=== PATIENT | female | born 1950 | race Caucasian/White ===

== ENCOUNTER 2017-08-23 16:19 | Inpatient (IN) | payer MEDICARE ==
[2017-08-23] MEDS ORDERED: DURAGESIC1 PATCH .2 TRANSDERM (17:00)
[2017-08-23] MEDS ORDERED: ULTRAM50 MG PO (17:01)
[2017-08-23] MEDS ORDERED: NORCO 7.5/325 T1 TA1 PO (17:02)
[2017-08-23] MEDS ORDERED: BACLOFEN10 MG PO (17:03)
[2017-08-23] MEDS ORDERED: COLACE100 MG PO (17:03)
[2017-08-23] MEDS ORDERED: MIRALAX17 GM PO (17:04)
[2017-08-23] MEDS ORDERED: PHENERGAN50 MG RC (17:05)
[2017-08-23] MEDS ORDERED: SYMBICORT 80-10.2 GM INH (17:06)
[2017-08-23] MEDS ORDERED: TEGRETOL200 MG PO (17:06)
[2017-08-23] MEDS ORDERED: OMEPRAZOLE20 M1 PO (17:06)
[2017-08-23] MEDS ORDERED: LYRICA100 MG PO (17:07)
[2017-08-23] MEDS ORDERED: PROZAC20 MG PO (17:08)
[2017-08-23] MEDS ORDERED: BENADRYL25 MG PO (17:12)
[2017-08-23] MEDS ORDERED: VENTOLIN HFA18 GM INH (17:21)
[2017-08-23] MEDS ORDERED: SPIRIVA18 MCG INH (17:22)
[2017-08-23] MEDS ORDERED: PREMARIN0.625 MG PO (17:23)
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
[2017-08-23 18:00] VITALS: BP 140/96; BMI 19.5
[2017-08-23 18:27] LABS: APPEARANCE CLEAR (CLEAR); COLOR YELLOW (YELLOW)
[2017-08-23 18:28] LABS: BILIRUBIN NEGATIVE (NEGATIVE); GLUCOSE NEGATIVE (NEGATIVE); KETONE NEGATIVE (NEGATIVE); NITRITE NEGATIVE (NEGATIVE); PROTEIN NEGATIVE (NEGATIVE); UROBILINOGEN NORMAL (NORMAL)
[2017-08-23 18:29] LABS: BACTERIA MODERATE /hpf (NONE SEEN); EPITHELIAL CELLS 0-5 /hpf (0-5); RED CELLS - URINE 0-5 /hpf (0-5)
--- NOTE | 2017-08-23 19:28 | NUR ---
PATIENT DOES HAVE NOTED SCARS ON CERVICAL AREA AND LUMBAR AREA AND LEFT KNEE.
[2017-08-23 20:01] VITALS: BP 92/64
--- NOTE | 2017-08-23 20:15 | NUR ---
RECEIVED IN DAYROOM. MOVING ABOUT IN WHEELCHAIR. O2@3L VIA NC. SOCIALIZING WITH STAFF AND PEERS. CALM AND COOPERATIVE WITH CARE AND ASSESSMENTS. NO SIGNS OF HALLUCINATIONS. ENCOURAGE TO EXPRESS NEEDS. RESTING IN WHEELCHAIR AT NURSES STATION AT THIS TIME. CONTINUE PLAN OF CARE
[2017-08-24 06:52] LABS: HEMOGLOBIN A1C 6.1 % (4.8-6.0)
[2017-08-24 07:11] LABS: CHOL - HDL RATIO 2.1 ratio (2.3-4.1); THYROID STIMULATING HORMONE 5.05 uIU/mL (0.36-3.74)
[2017-08-24 08:00] VITALS: BP 121/71
--- NOTE | 2017-08-24 09:00 | NUR ---
Received pt in dining room, alert, calm, cooperative, grandiose delusions, talks frequently. Meds admin per orders. Group therapy provided. No s/s adverse reaction to meds. Cont POC including meds and group therpay as directed.
[2017-08-24 14:25] VITALS: BMI 19.4
--- NOTE | 2017-08-24 15:26 | NUR ---
pt attempted to transfer from the wheelchair and it slid out from under her. pt fell on her bottom. pt denies any pain or discomfort. no injury noted on assessment. pt's sister notified of fall. dr. church called and no new orders gotten. neurochecks started. vss.
[2017-08-24 20:51] VITALS: BP 107/58
--- NOTE | 2017-08-24 21:52 | NUR ---
RECEIVED IN BEDROOM. LAYING IN BED WITH EYES OPEN. SOMATIC COMPLAINTS. ATTENTION SEEKING AT TIMES. CALM AND COOPERATIVE WITH CARE AND ASSESSMENT. NO SIGNS OF HALLULCINATIONS. VERY DELUSIONAL. PARANOID AT TIMES. REDIRECT AND REORIENT NEEDED. RESTING IN BED WITH EYES CLOSED AT THIS TIME. CONTINUE PLAN OF CARE.
--- NOTE | 2017-08-25 04:06 | NUR ---
Given Tramadol for complaints of headache and left thigh pain, rated as 8/10 in severity. Will monitor for effectiveness.
[2017-08-25 06:16] LABS: VITAMIN D 25 HYDROXY 41.5 ng/mL (30.0-100.0)
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
[2017-08-25 07:24] LABS: RAPID PLASMA REAGIN Non Reactive (Non Reactive)
[2017-08-25 08:00] VITALS: BP 115/53
[2017-08-25 09:18] LABS: FOLATE (FOLIC ACID) - SERUM 12.2 ng/mL (>3.0)
--- NOTE | 2017-08-25 13:28 | PSY ---
PATIENT NAME:GUILLE HASSAN MEDICAL RECORD: [id number] : 52 LOCATION:[id number] ADMISSION DATE: 08/23/17 ACCOUNT: [id number] PSYCHIATRIC EVALUATION DATE OF EVALUATION: 08/24/17 IDENTIFYING DATA: The patient is 66 years old and she is admitted to the hospital on a voluntary basis. CHIEF COMPLAINT: Confusion. HISTORY OF PRESENT ILLNESS: The patient was originally admitted to [facility] because of some hallucinations, confusion, and mental status changes. She was cleared by them both medically and neurologically and they made a referral to the behavioral unit here at [facility]. The patient was admitted for the mental status change and the hallucinations. Upon interview, the patient tells me that she is angry and upset because I have discontinued some of her medications. She tells me that she has been on a variety of pain medicines, antinausea medicines, and muscle relaxants for years. In fact, she says 22 years, which seems like quite a long time ago, but that is what she says. She is not really at all cooperative with my interview because I will not agree to give her this combination of medicines that probably caused the symptoms that brought her here. She is clear when she talks to me, and in fact, was quietly reading a book in the dayroom. She says she loves to read. She has not had any difficulty in maintaining her concentration and tells me a little bit about the book she is reading while there is a great deal of commotion and activity going on in the dayroom. She denies having any hallucinations right now. I did stop some of her medications last night when I reviewed them after she was admitted because it was clearly inappropriate. She says that her medicines are being prescribed by the doctors at the [facility] and she wants me to transfer her there at 4:30 in the afternoon. I do not have the capacity to initiate that at this time. She is not happy and does not seem to understand that [facility] from [facility], and at the same time, is not happy that I am not willing to start making phone [facility] to [facility] this afternoon. I will discuss the situation with the treatment team. She denies that she would seek to harm herself or others. She denies psychotic symptoms. PAST MEDICAL HISTORY: Significant for COPD; chronic constipation, probably secondary to her narcotic use; and urinary tract infection. She also tells me that she fractured her left knee in January and that is why she is in need of narcotics here at the end of July. In addition to that, she tells me that she has had multiple back surgeries. PAST PSYCHIATRIC HISTORY: Significant for depression. She denies substance abuse history. She does say that, in the past, she did drink more than she should, but stops short of saying she is an alcoholic. SOCIAL HISTORY: The patient is single. She is a retired [employer] . She says she has no legal entanglements. MENTAL STATUS EXAMINATION: The patient is awake; alert; and oriented to person, place, time, and situation. Her mood is angry. Her affect is constricted. Thought processes are goal directed. Memory, concentration, and abstraction abilities appear to be intact, but they were not formally tested because the patient became angry for reasons described above. She does not have any thoughts of harming herself or others and clearly has no psychotic symptoms right now and denies that she is having any psychotic symptoms. ASSETS: Stable living environment. LIABILITIES: Limited insight. ALLERGIES: PENICILLIN, VANCOMYCIN, REGLAN, AND DEMEROL. CURRENT MEDICATIONS: Include fentanyl, Ultram, baclofen, Colace, MiraLAX, Symbicort, Tegretol, Lyrica, Prozac, Ventolin, Spiriva, estrogen, [place], Phenergan, and Benadryl. FAMILY HISTORY: Negative for psychiatric disease by her report. ASSESSMENT: AXIS I: Delirium, probably secondary to multiple medications and multiple medication interactions. Rule out opiate addiction. AXIS II: Deferred. AXIS III: COPD, gastroesophageal reflux disease, chronic constipation, urinary tract infection, and impaired mobility. AXIS IV: Mild stressors. AXIS V: Global assessment of functioning is 30. PLAN: At this time, the patient is admitted to the hospital secondary to delirious symptoms probably associated with polypharmacy. I am going to make appropriate changes in her medication regimen, and if she wishes to be discharged against medical advice, there are no symptoms that would prohibit her from leaving. That is to say she is not acutely psychotic or dangerous to herself in a direct way. Furthermore, if she wishes to be transferred to another facility, I will appropriately assist her with that tomorrow. TRANSINT:[id number] Voice Confirmation ID: [id number] DOCUMENT ID: [id number] ANIA AWAD MD at 1328 CC: [id number] DICTATION DATE: 08/24/17 1639 ANTENNA DESIGN ENGINEER: 08/24/17 1743 ADM IN [id number] [place] [address]
--- NOTE | 2017-08-25 15:37 | NUR ---
PATIENT IS MOANING AND GROANING AND COMPLAINING THAT SHE WANTS TO LEAVE AND THE DRStephen HERE IS NOT LISTENING, SHE SAYS "I NEED MY BENADRYL, I AM ALLERGIC TO ADHESIVE, THE [facility] IS ADHESIVE, DUH, DOESN'T ANYONE GET IT" NO AMOUNT OF TRYING TO REASON WITH PATIENT WILL ALLOW HER TO THINK IN AN APPROPRIATE MANNER" SHE IS SAYING "MY DRStephen WOULD NOT PRESCRIBE ME THE MEDICINE IF SHE THOUGHT IT WAS BAD FOR ME, [place]" PATIENT DID RECEIVE 2 MG HALDOL PO NOW. WILL MONITOR. SHE WANTS TO TALK AND COMPLAIN NONSTOP, SHE HAS HAD MUCH REDIRECTION ALL DAY.
--- NOTE | 2017-08-25 18:00 | NUR ---
PATIENT IS STAFF SPLITTING, TALKING TO ONE STAFF AGAINST ANOTHER, SHE IS ALSO IN PATIENTS BUSINESS TELLING THEM "WELL IF I WAS YOU, I'D BEG MY DRStephen TO GET OXYGEN, THAT'S WHAT I HAD TO DO" SHE HAS MADE MULTIPLE PHONE CALLS AND SHE IS WORKING ON A WAY TO LEAVE. HER SISTER AND NIECE FEEL SHE IS NOT SAFE TO LEAVE BECAUSE THEY DO BELIEVE SHE NEEDS TO BE HERE. PATIENTS SISTER DOES REQUEST A PHONE CALL FROM [facility] TO GET INFORMATION ON [place]URDIANSHIP TO KEEP HER SISTER SAFE.
[2017-08-25 19:58] VITALS: BP 130/79
--- NOTE | 2017-08-26 01:23 | NUR ---
b) Patient alert and laying on couch on O2, hyperverbal, constant negative remarks, attention seeking, family from out of state called to say that they will come and get patient tomorrow afternoon, patient had called him, I) Administered scheduled medications, PRN Haldol 2 mg PO given at HS for anxiety, redirected as needed, monitored for safety, R) Medication compliant, difficult and unpleasant P) Continue plan of care.
--- NOTE | 2017-08-26 10:22 | NUR ---
B) PATIENT IS DRAMATIC AND ATTENTION SEEKING, SHE WANTS TO GET IN EVERYONE'S BUSINESS AND MAKE COMMENTS, SHE MAKES NEGATIVE REMARKS AND TRIES TO STIR OTHER PATIENTS UP, AND STAFF SPLIT. ATTENTION SEEKING AND WANTS PAIN MEDS. I) PROVIDE PRESCRIBED MEDS, DID PROVIDE HALDOL 2 MG PO NOW PER PATIENT REQUEST. R) PATIENT IS BEING DISCHARGED AMA BETWEEN THREE AND FOUR. P) CONTINUE D/C PLAN
--- NOTE | 2017-08-29 13:43 | PN ---
PATIENT:GUILLE HASSAN MEDICAL RECORD: [id number] LOCATION:[facility] ADMISSION DATE: 08/23/17 PROGRESS NOTE DATE OF SERVICE: 08/25/2017 SUBJECTIVE: The patient's case was discussed with staff. She has no new complaint. OBJECTIVE: The patient is in good behavioral control with limited insight about her condition. She tolerates her medications well. ASSESSMENT: No change in diagnoses. PLAN: The patient's cognition is improving and I am going to continue to taper her off of her pain medications, which I do not see a clinical indication for. She may be discharged anytime she wishes assuming appropriate placement can be found. TRANSINT:[id number] Voice Confirmation ID: [id number] DOCUMENT ID: [id number] ANIA AWAD MD at 1343 CC: [id number] DICTATION DATE: 08/25/17 1338 SANDING LINE OPERATOR: 08/25/17 1433 DIS IN 08/26/17 [id number] [place] [address]
--- NOTE | 2017-09-08 13:31 | DS ---
PATIENT:GUILLE HASSAN :52 MEDICAL RECORD: [id number] DISCHARGE SUMMARY ADMISSION DATE: 08/23/17 DISCHARGE DATE: 08/26/17 IDENTIFYING DATA: The patient is 66 years old, and she was admitted to the hospital on a voluntary basis secondary to confusion. Apparently, the patient had initially been admitted to [facility] because of not just the confusion, but some mental status changes and some hallucinations. She was found to be both medically and neurologically stable and was subsequently transferred to the behavioral unit here for ongoing evaluation. The patient actually was only mildly confused when she was admitted here having had much of the confusion already resolved. She interestingly was on a bizarrely inappropriate combination of medicines in my opinion. She was on a variety of narcotic pain medicines, antinausea medications, and muscle relaxants. She says that she had been on all of these for 22 years and that she must have all of them. HOSPITAL COURSE: The patient was comprehensively evaluated from both a medical, psychological, and social standpoint. It was clear to me that she had a delirium induced from polypharmacy. I stopped some of her medications and discussed the possibility of other types of treatment for her and tried to explain how inappropriate it is to take multiple opiates or even a single opiate retirement and especially if you are combining it with other medicines that are antihistaminic and anticholinergic. She was also taking a number of smooth muscle relaxants, which have cognitive issues associated with them. She did not approve of this. She certainly was highly offended when I suggested that perhaps there was a substance use disorder. The patient insisted that I prescribe what I was not comfortable prescribing and I refused. She was not suicidal, homicidal, gravely disabled, or psychotic, and she was subsequently discharged from the hospital against medical advice. DISCHARGE DIAGNOSES: AXIS I: Delirium, probably secondary to multiple medications and multiple medication interactions. Opiate addiction. AXIS II: Deferred. AXIS III: Chronic obstructive pulmonary disease, gastroesophageal reflux disease, chronic constipation, urinary tract infection, impaired mobility. AXIS IV: Mild stressors. AXIS V: Global assessment of functioning is 40. PLAN: At the time of discharge, the patient was not acutely dangerous to herself or others. She was not having any symptoms of delirium and was quite angry that I would not prescribe for her what she demanded even though I did not see a clinical indication for it and in fact the combination is not in her best interest. This is more than just a disagreement between a clinician and patient. I think she has a substance use disorder and is in need of treatment for it. At any rate, since she had no evidence of acute dangerousness, she was released against medical advice and I would be happy to accept her back in treatment if she would like me to help her with these issues. Followup will be arranged by the patient. TRANSINT:[id number] Voice Confirmation ID: [id number] DOCUMENT ID: [id number] DISCHARGE SUMMARY REPORT [id number] GUILLE HASSAN PETER MD at 1331 CC: [id number] DICTATION DATE: 09/07/17 1308 INCENDIARY POWDER MIXER: 09/07/17 1617 DIS IN 08/26/17 [id number] [place] [address]
== END 2017-08-26 19:28 | disposition left against medical advice (07) | DRG 880 ==
LOC: D.PSYCH 16:19
PROVIDERS: ADMIT Psychiatry & Neurology Psychiatry
DX: F05 Delirium due to known physiological condition (principal); N39.0 Urinary tract infection, site not specified; F41.8 Other specified anxiety disorders; J44.9 Chronic obstructive pulmonary disease, unspecified; K21.9 Gastro-esophageal reflux disease without esophagitis; K59.09 Other constipation; G62.9 Polyneuropathy, unspecified; Z74.09 Other reduced mobility; G89.29 Other chronic pain; M25.562 Pain in left knee; M25.552 Pain in left hip